=== PATIENT | female | born 1970 | race Caucasian/White ===

== ENCOUNTER 2021-07-06 22:51 | Emergency (ER) | payer MEDICARE ==
[~2021-07-06] VITALS: Ht 162.6 cm; Wt 81.6 kg
[~2021-07-06 22:51] MED LIST: birth control; lorazepam; motrin; percocet
[2021-07-06] MEDS ORDERED: SODIUM CHLORIDE 0.9% 1000ML 1,000 ML IV STA ×3 (23:31)
[2021-07-06] MEDS ORDERED: KETOROLAC TROMETHAMINE 30 MG/ML VIAL IV STA (23:44)
[2021-07-06] MEDS ORDERED: Vancomycin IV 1 GM in SODIUM CHLORIDE 0.9% 250ML 250 ML IV ONE (23:45)
[2021-07-06] MEDS ORDERED: FENTANYL CITRATE/PF 100MCG/2 ML INJ IV ONE (23:45)
[2021-07-07] MEDS ORDERED: ATIVAN1 MG PO (00:21)
[2021-07-07] MEDS ORDERED: GABAPENTIN300 MG PO (00:21)
[2021-07-07] MEDS ORDERED: OZEMPIC0.25 MG/0. SC (00:21)
[2021-07-07] MEDS ORDERED: TYLENOL EXTRA500 MG PO (00:21)
[2021-07-07] MEDS ORDERED: IRON325 M1 PO (00:21)
[2021-07-07] MEDS ORDERED: METFORMIN HCL500 MG PO (00:21)
[2021-07-07] MEDS ORDERED: ELIQUIS5 MG PO (00:21)
[2021-07-07] MEDS ORDERED: CEPHALEXIN500 MG PO ×2 (01:31→01:40)
[2021-07-07] MEDS ORDERED: BACTRIM DS TAB1 EACH PO ×2 (01:31→01:40)
== END 2021-07-07 01:44 | disposition home or self-care (01) ==
LOC: FSED 23:22 → MERGE 23:22 → FSED 07-07 01:44
DX: A41.9 Sepsis, unspecified organism (principal); L03.311 Cellulitis of abdominal wall; R50.9 Fever, unspecified; E11.9 Type 2 diabetes mellitus without complications; Z20.822 Contact with and (suspected) exposure to COVID-19
CPT/HCPCS: 71260; 74177; 83605; 87040; 87086; 93005; 99284; U0002

== ENCOUNTER 2021-07-07 22:37 | Emergency (ER) | payer MEDICARE ==
[~2021-07-07] VITALS: Ht 162.6 cm; Wt 81.6 kg
[~2021-07-07 22:37] MED LIST changes: +ATIVAN1 MG PO; +BACTRIM DS TAB1 EACH PO; +CEPHALEXIN500 MG PO; +ELIQUIS5 MG PO; +GABAPENTIN300 MG PO; +IRON325 M1 PO; +METFORMIN HCL500 MG PO; +OZEMPIC0.25 MG/0. SC; +TYLENOL EXTRA500 MG PO
[2021-07-07] MEDS ORDERED: SODIUM CHLORIDE 0.9% 1000ML 1,000 ML IV STA (23:05)
[2021-07-07] MEDS ORDERED: Vancomycin IV 1 GM in SODIUM CHLORIDE 0.9% 250ML 250 ML IV ONE (23:15)
[2021-07-07 23:34] LABS: BASOPHILS # (AUTO) 0.1 (0.0-0.1); BASOPHILS % 0.5 % (0.0-1.0); EOSINOPHILS # (AUTO) 0.5 (0.0-0.4); EOSINOPHILS % 3.7 % (0.0-6.0); HEMATOCRIT 31.4 % (34.2-44.1); HEMOGLOBIN 9.7 g/dL (12.0-16.0); LYMPHOCYTES # (AUTO) 2.1 (1.0-3.2); LYMPHOCYTES % 14.6 % (18.0-39.1); MEAN CORPUSCULAR HEMOGLOBIN 28.8 pg (28-32); MEAN CORPUSCULAR HGB CONC 30.9 g/dL (31-35); MEAN CORPUSCULAR VOLUME 93.2 fL (81-99); MONOCYTES # (AUTO) 1.1 (0.2-0.8); MONOCYTES % 7.5 % (4.4-11.3); NEUTROPHILS # (AUTO) 9.9 (2.1-6.9); NEUTROPHILS % 69.2 % (38.7-80.0); PLATELET COUNT 490 x10e3/uL (140-360); RED BLOOD COUNT 3.37 x10e6/uL (3.6-5.1)
[2021-07-07 23:44] LABS: INR 0.92; PROTHROMBIN TIME 13.2 seconds (11.9-14.5)
[2021-07-07 23:45] LABS: PARTIAL THROMBOPLASTIN TIME 32.2 seconds (23.8-35.5)
[2021-07-07 23:54] LABS: ALBUMIN 2.7 g/dL (3.5-5.0); ALBUMIN/GLOBULIN RATIO 0.8 (0.8-2.0); CALCIUM 7.8 mg/dL (8.4-10.2); CREATININE, SERUM 0.78 mg/dL (0.57-1.11)
[2021-07-07 23:59] LABS: CLARITY,URINE CLEAR (CLEAR); COLOR,URINE YELLOW (YELLOW); KETONES,URINE NEGATIVE (NEGATIVE); LEUKOCYTE ESTERASE ,URINE NEGATIVE (NEGATIVE); NITRITE,URINE NEGATIVE (NEGATIVE); PROTEIN,URINE DIPSTICK NEGATIVE (NEGATIVE); URINE UROBILINOGEN 0.2 mg/dL (0.2 - 1)
[2021-07-08 00:03] LABS: BACTERIA,URINE MODERATE /HPF; EPITHELIAL CELLS,URINE FEW /LPF; MUCUS,URINE FEW (RARE); WBC,URINE (MAN) 0-5 /HPF (0-5)
[2021-07-08] MEDS ORDERED: SODIUM CHLORIDE 0.9% 100 ML ONE (00:03)
[2021-07-08] MEDS ORDERED: IOPAMIDOL 370 MG/ML 100 ML INFUS..BTL INJ ONE (00:03)
[2021-07-08] MEDS ORDERED: ONDANSETRON HCL INJ 2MG/ML 2ML 2 MG/ML VIAL IV STA (01:47)
[2021-07-08] MEDS ORDERED: Morphine 4mg Syringe 4 MG/ML INJ IV ONE (02:00)
[2021-07-08] MEDS ORDERED: KETOROLAC TROMETHAMINE 30 MG/ML VIAL IV STA (02:04)
[2021-07-08 05:00] VITALS: BP 122/67
== END 2021-07-08 05:02 | disposition other institution (70) ==
LOC: ER 23:40 → MERGE 23:40 → ER 07-08 05:02
DX: R50.9 Fever, unspecified (principal); L03.311 Cellulitis of abdominal wall; U07.1 COVID-19; R00.2 Palpitations
CPT/HCPCS: 36415; 71045; 71260; 80053; 81001; 83518; 83605; 85025; 85610; 85730; 87040; 87070; 87086; 99285; J1885; J2543; J3370; J7030; J7050 ×2; Q9967; U0002